=== PATIENT | female | born 1965 | race Caucasian/White ===

== ENCOUNTER 2019-05-23 11:00 | Inpatient (IN) | payer OTHER ==
[2019-05-13 17:23] VITALS: BMI 26.6
--- NOTE | 2019-05-22 09:11 | HP ---
Admitting History and Physical - Primary Care Physician PCP: Chan Linda - Admission Chief Complaint: Left breast cancer History of Present Illness: 53 year old perimenapausal female with strong family H/O cancer She underwent bilateral breast biopsises in the past and carries VUS BLM and TSC2 genes. mammogram and [facility] 11/2018 showed right retroareolar distortion and left upper quadrant calcifications which were compared and unchanged to prior films. She underwent breast MRI 03/25/2019 .there was unchanged density in right breast 12: 00 and area of suspicious enhancement left 3 and 5:00 regions. 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 The 3:00 density was felt to be benign. History Source: Patient Limitations to Obtaining History: No Limitations - Past Medical History ...LMP: 05/03/19 - Past Surgical History Past Surgical History: Yes: Appendectomy, (x2) - Smoking History Smoking history: Never smoked Have you smoked in the past 12 months: No - Alcohol/Substance Use Hx Alcohol Use: Yes (SOCIAL) Home Medications - Allergies Allergies/Adverse Reactions: Allergies Allergy/AdvReac Type Severity Reaction Status Date / Time Penicillins Allergy Verified 05/13/19 17:13 - Home Medications Home Medications: Ambulatory Orders Alprazolam [Xanax] 0.25 mg PO HS 05/13/19 Meloxicam 1 each PO PRN PRN 05/13/19 Family Disease History - Family Disease History Family Disease History: CA: Father (lung ca 64), Mother (breast and lung ca 63 ), Sister (breast ca 44 brca neg age 56//sister lung ca54//brother x2 lung ca 45) Physical Examination Constitutional: Yes: Well Nourished, No Distress Breast(s): Yes: Other (ptotic C cup breasts post bx fibroglandular changes left breast outer aspect no adenopathy bilateral right breast negative) Problem List - Problems (1) Breast cancer, left breast Code(s): C50.912 - MALIGNANT NEOPLASM OF UNSPECIFIED SITE OF LEFT FEMALE BREAST Qualifiers: Breast location: lower outer quadrant of breast Estrogen receptor status: positive Patient sex: female Qualified Code(s): C50.512 - Malignant neoplasm of lower-outer quadrant of left female breast; Z17.0 - Estrogen receptor positive status [ER+] Assessment/Plan Bilateral nipple sparing total mastectomies retroareolar biopsies reconstruction
[2019-05-23] MEDS ORDERED: GENTAMICIN SO4 80 MG/2 ML VIAL ONE (12:55)
[2019-05-23] MEDS ORDERED: ceFAZolin SODIUM 1 GM VIAL ONE (12:55)
[2019-05-23] MEDS ORDERED: ACETAMINOPHEN 325 MG TABLET (FP) PO PRN (12:57)
[2019-05-23] MEDS ORDERED: oxyCODONE HCL 5 MG TABLET PO PRN ×2 (12:57)
[2019-05-23] MEDS ORDERED: ONDANSETRON 4 MG/2 ML VIAL IVPUSH PRN ×2 (12:57→17:10)
[2019-05-23] MEDS ORDERED: ISOSULFAN BLUE 10 MG/ML VIAL SQ ONE (13:08)
[2019-05-23] MEDS ORDERED: BUPIVACAINE LIPOSOME/PF (EXPAREL) 266 MG/20 ML VIAL ONE (13:45)
[2019-05-23] MEDS ORDERED: fentaNYL CITRATE 250 MCG/5 ML VIAL ONE (13:46)
[2019-05-23] MEDS ORDERED: MIDAZOLAM HCL 2 MG/2 ML SINGLE DOSE VIAL ONE (13:46)
[2019-05-23] MEDS ORDERED: ROCURONIUM BROMIDE 50 MG/5 ML SYRINGE ONE (13:47)
[2019-05-23] MEDS ORDERED: PROPOFOL 20 ML ONE (13:47)
[2019-05-23] MEDS ORDERED: BUPIVACAINE HCL/PF 2.5 MG/ML - 30 ML VIAL IJ ONE (15:04)
[2019-05-23] MEDS ORDERED: SODIUM CHLORIDE 0.9% P/F 10 ML VIAL IJ ONE (15:04)
[2019-05-23] MEDS ORDERED: HYDROmorphone HCL/PF 1 MG/ML AMP ONE (15:43)
[2019-05-23] MEDS ORDERED: GLYCOPYRROLATE 0.2 MG/1 ML VIAL ONE ×3 (16:42→16:43)
[2019-05-23] MEDS ORDERED: BUPIVACAINE HCL/PF 0.25% (2.5MG/ML) 10 ML VIAL IJ ONE (16:45)
[2019-05-23] MEDS ORDERED: BUPIVACAINE LIPOSOME/PF (EXPAREL) 266 MG/20 ML VIAL NR ONE (16:45)
[2019-05-23] MEDS ORDERED: PROMETHAZINE HCL 25 MG/1 ML VIAL IVPUSH PRN (17:10)
[2019-05-23] MEDS ORDERED: HYDROmorphone HCL CARPU-JECT 1 MG/1 ML DISP.SYRIN IVPUSH PRN (17:10)
--- NOTE | 2019-05-23 17:39 | OP ---
Operative Note - Note: Operative Date: 05/23/19 Pre-Operative Diagnosis: left breast cancer Operation: bilateral nipple sparing mastectomy with left sentinel lymph node biopsy. bilateral breast reconstruction with alloderm and implants. Surgeon: Nader Lyon Conveyor Loader: Justina Rubio Anesthesiologist/GEAR LAPPER: Mk Thornton Anesthesia: General Estimated Blood Loss (mls): 30 Fluid Volume Replaced (mls): 1,700 Operative Report Dictated: Yes
--- NOTE | 2019-05-23 18:33 | OP ---
DATE OF OPERATION: 05/23/2019 PREOPERATIVE DIAGNOSIS: Left breast cancer, lower outer quadrant. POSTOPERATIVE DIAGNOSIS: Left breast cancer, lower outer quadrant. PROCEDURE: Bilateral total nipple-sparing mastectomy through an inframammary approach with left axillary sentinel lymph node biopsy and bilateral direct implant reconstruction with AlloDerm. PRIMARY SURGEON: Heriberto Linda MD DECATOR OPERATOR: RAYMOND Quintana PRIMARY SURGEON FOR BILATERAL DIRECT IMPLANT RECONSTRUCTION: Heriberto Lyon MD COMPLICATIONS: None. INDICATIONS: Briefly, the patient is a 53-year-old perimenopausal white female with a strong family history with her sister who had breast cancer at age 44 and mother who had breast cancer at age 61. Her maternal aunt had breast cancer at age 60. The patient herself has been getting close followup and has had multiple benign biopsies in the past. She had an increased Bre risk and has been getting routine MRI as well. She was found to have some recent enhancement to the left breast 5 o'clock region on recent MRI and underwent an MRI-guided core biopsy in the 5 o'clock region showing a moderately differentiated invasive duct cancer, which was ER/MA-positive, HER2/peg-negative with a low Ki-67. Cancer seemed to be localized on MRI and the patient was given the option of a partial mastectomy, but decided to go forward with bilateral mastectomies given her strong family history. She was given the option of a nipple-sparing procedure given the localized small nature of this cancer. She was seen by plastic surgery preoperatively and chose the bilateral implant reconstruction. She was brought in on May 23, 2019 for the procedure. DESCRIPTION OF PROCEDURE: She first underwent a lymphoscintigraphy with the periareolar injection of technetium 99, performed at [facility] and then was transported to the [facility] area. In the holding area, site verification was made and informed consent was obtained. She was marked preoperatively by the plastic surgeon. She was brought into the operating room and placed on the OR table in the supine position. Venodynes were placed on the lower extremities prior to induction. She received 600 mg of clindamycin prior to incision. She underwent general endotracheal anesthesia and both breasts were sterilely prepped and draped in the usual fashion with the left arm prepped in the field. No blue dye was injected since we were doing a nipple-sparing technique. Timeout was performed. At this point, the left axially sentinel lymph node biopsy was first performed and an incision was made just below the hair-bearing area of the left axilla. Dissection was undertaken and a hot node was easily found in the level 1 region of the left axilla with a 10-second gamma count of 2647. No other blue nodes were found and background count after removal of this node was 37. Hemostasis was achieved. The axial wound was closed using interrupted 3-0 deep dermal Vicryl suture and a running 4-0 subcuticular Biosyn suture. At this point, the left mastectomy was performed through a 9-cm inframammary incision, marked out in the inframammary fold of the left breast. The skin edges were everted and the breast tissue was retracted inferiorly using Koffi clamps. The breast was taken down off of the skin flap using the PEEK radiofrequency device superiorly to the level of the clavicle, medially to the level of the sternum, laterally to the level of the latissimus, and inferiorly to the level of the inframammary fold. The breast was taken off of the temporalis major muscle using electrocautery from [id number], completely removed intact. It was oriented with a long lateral and short superior suture and specimen radiograph of the breast showed removal of the clip in question. A separate small subcutaneous nodule was noted just on the lateral aspect of the left skin flap and this was removed and sent as a separate left lateral breast mass. A separate left lower outer quadrant anterior margin was also taken and this was marked with a suture marking the biopsy cavity side and sent to Pathology in formalin. At this point, hemostasis was achieved and the wound was copiously irrigated with warm sterile saline. The skin flaps were trimmed for good cosmetic result. The retroareolar biopsy was taken underneath the left nipple areolar complex and sent for frozen section. It came back negative, so the left nipple was spared. Gloves were changed as well as instruments and the right breast was approached. Again, a 10-cm incision was made in the inframammary fold of the right breast, symmetrical to the left incision. The skin edges were everted and the breast tissue was retracted inferiorly using [employer] [place] clamps. The skin flap was raised using the PEEK radiofrequency device superiorly to the level of the clavicle, medially to the level of the sternum, laterally to the level of the latissimus, and inferiorly below the level of the inframammary fold. The breast was taken off of the pectoralis major muscle from [id number], completely removed intact. It was oriented with a long lateral, short superior suture and weighed to allow for appropriate cosmetic result. It was then sent down in formalin to Pathology. The skin flaps were trimmed to a good cosmetic result. A retroareolar biopsy was taken underneath the right nipple areolar complex and sent for frozen section, which came back negative. The right nipple was spared. Again, the skin flaps were trimmed for good cosmetic result and hemostasis was achieved. At this Dr. Lyon became the primary surgeon to perform bilateral subpectoral direct implant reconstruction with AlloDerm. He will sew AlloDerm into the inferolateral aspect of both pectoralis major muscles to allow for direct reconstruction. Two Russel drains will be placed around each implant and brought out through separate incisions in the lateral skin flap and secured in place using nylon suture. All wounds will be closed separately by Plastic Surgery. All sponge and needle counts are correct at this point in the case. Estimated blood loss is about 125 mL at this point in the case. We did use the Spy skin perfusion device after the mastectomy and after the implant reconstructions, which showed excellent blood flow through the skin flaps and nipple areolar complexes. After the reconstruction, the patient will be extubated and recovered in the postanesthesia care unit and then she will be admitted postoperatively for pain and wound management. HERIBERTO LINDA M.D. [id number]
[2019-05-23] MEDS: diazePAM 5 MG TABLET PO PRN (21:35)
[2019-05-24] MEDS: oxyCODONE HCL 5 MG TABLET PO PRN ×6 (00:26→21:10)
[2019-05-24] MEDS: CLINDAMYCIN 300 MG PREMIX IVPB 300 MG/50 ML BAG IVPB SCH ×4 (02:00→17:14)
[2019-05-24] MEDS: HEPARIN NA (PORCINE) 5,000 UNITS/ML 1ML VIAL SQ SCH ×2 (07:20→20:55)
--- NOTE | 2019-05-24 07:44 | SURG ---
Surgery Water Softener Servicer And Installer Note Water Softener Servicer And Installer: Justina Rubio PA-C (Suzy) Date of Service: 05/23/19 Diagnosis: Left breast cancer Procedure: Bilateral breast reconstruction with alloderm and implants I was present for the entirety of the operative procedure. For further detail, please refer to operative report. Visit type - Case Type Case Type: Scheduled - Emergency Emergency Visit: No - New patient This patient is new to me today: Yes Date on this admission: 05/24/19 - Critical Care Critical Care patient: No
--- NOTE | 2019-05-24 07:46 | SPA.POSTOP ---
- POST-OP NOTE POD #1 s/p bilateral mastectomy and breast reconstruction No acute events since surgical procedure per RN notes. Patient resting comfortably. Pain management via prn meds. Denies n/v/f/c, CP or SOB. Last Vital Signs Temp Pulse Resp BP Pulse Ox 98.4 F 72 19 133/66 95 05/24/19 06:00 05/24/19 06:00 05/24/19 06:00 05/24/19 06:00 05/24/19 07:15 Physical Exam General: No acute distress. Chest: incisions clean with no erythema or discharge, skin and nipple are pink and warm, drains in place with serosanguinous drainage. Cor: Regular rhythm LE: Soft, non-tender bilat. SCD's bilat. Problem List - Problems (1) Breast cancer, left breast Assessment/Plan: Plan -pt appears to be doing well -OOB/ambulate -pain control -DVT ppx -monitor drain output. Code(s): C50.912 - MALIGNANT NEOPLASM OF UNSPECIFIED SITE OF LEFT FEMALE BREAST Qualifiers: Breast location: lower outer quadrant of breast Estrogen receptor status: positive Patient sex: female Qualified Code(s): C50.512 - Malignant neoplasm of lower-outer quadrant of left female breast; Z17.0 - Estrogen receptor positive status [ER+]
[2019-05-24 07:57] LABS: HEMOGLOBIN 11.3 GM/dl (10.7-15.3); MCH 31.2 pg (25.7-33.7); MCHC 34.2 g/dl (32.0-36.0); MEAN CELL VOLUME 91.2 fl (80-96); MEAN PLT VOLUME 8.3 fl (7.5-11.1); PLATELET COUNT 247 K/MM3 (134-434); RBC 3.63 M/mm3 (3.60-5.2); RDW 12.1 % (11.6-15.6); WHITE BLOOD COUNT 14.2 K/mm3 (4.0-10.8)
--- NOTE | 2019-05-24 09:05 | PN ---
Progress Note, Physician Chief Complaint: Left breast cancer S/P bilateral nipple sparing mastectomies left sentenel node biopsy and alloderm and implant reconstruction POD#1 History of Present Illness: Patient is eating OOB walking in hallway, pain controlled with current medication - Current Medication List Current Medications: Active Medications Acetaminophen (Tylenol -) 650 mg PO Q4H PRN PRN Reason: FEVER Diazepam (Valium -) 5 mg PO Q8H PRN PRN Reason: MUSCLE SPASMS Last Admin: 05/23/19 21:35 Dose: 5 mg Fentanyl (Sublimaze Injection -) 50 mcg IVPUSH [id number] PRN PRN Reason: PAIN-PACU ORDER X 4 DOSES ONLY Heparin Sodium (Porcine) (Heparin -) 5,000 unit SQ BID@0800,2000 [facility] Last Admin: 05/24/19 07:20 Dose: 5,000 unit Hydromorphone HCl (Dilaudid Injection -) 0.5 mg IVPUSH [id number] PRN PRN Reason: PAIN-PACU ORDER X 4 DOSES ONLY Dextrose/Sodium Chloride (D5-1/2ns -) 1,000 mls @ 100 mls/hr IV ASDIR [facility] Clindamycin Phosphate (Cleocin 300 Mg Premix Ivpb) 300 mg in 50 mls @ 100 mls/ hr IVPB Q8H-IV [facility]; Protocol Last Admin: 05/24/19 02:00 Dose: 100 mls/hr Ondansetron HCl (Zofran Injection) 4 mg IVPUSH Q6H PRN PRN Reason: NAUSEA AND/OR VOMITING Last Admin: 05/24/19 00:39 Dose: 4 mg Oxycodone HCl (Roxicodone -) 5 mg PO Q4H PRN PRN Reason: PAIN LEVEL 1-5 Last Admin: 05/24/19 07:20 Dose: 5 mg Oxycodone HCl (Roxicodone -) 10 mg PO Q4H PRN PRN Reason: PAIN LEVEL 6-10 Promethazine HCl (Phenergan Injection -) 12.5 mg IVPUSH Q6H PRN PRN Reason: NAUSEA-FOR RESCUE AFTER 15 MIN - Objective Vital Signs: Vital Signs Temperature 98.4 F 05/24/19 06:00 Pulse Rate 72 05/24/19 06:00 Respiratory Rate 19 05/24/19 06:00 Blood Pressure 133/66 08/16/19 06:00 O2 Sat by Pulse Oximetry (%) 95 05/24/19 07:15 Constitutional: Yes: No Distress Breast(s): Yes: Other (Bilateral flaps viable incision intact with steristrips , left moderate echymosis, no infection or expanding hematoma , JAVED drains functionng well) Labs: CBC, BMP 05/24/19 07:00 Problem List - Problems (1) Breast cancer, left breast Code(s): C50.912 - MALIGNANT NEOPLASM OF UNSPECIFIED SITE OF LEFT FEMALE BREAST Qualifiers: Breast location: lower outer quadrant of breast Estrogen receptor status: positive Patient sex: female Qualified Code(s): C50.512 - Malignant neoplasm of lower-outer quadrant of left female breast; Z17.0 - Estrogen receptor positive status [ER+] Assessment/Plan IV antibiotics oxycodone /valium prn spirometry scd while in bed SQ heparin plan for discharge tomorrow
[2019-05-24] MEDS: diazePAM 5 MG TABLET PO PRN (09:25)
[2019-05-24] MEDS: DEXTROSE 5%-0.45% SALINE 1,000 ML IV SCH ×2 (10:15→13:40)
--- NOTE | 2019-05-24 12:09 | PN ---
Progress Note (short form) - Note Progress Note: ANESTHESIA POSTOP 53 YO FEMALE POD #1 S/P BL MASTECTOMY, RECONSTRUCTION, GETA Patient resting in bed. Tolerating PO. Pain adequately controlled. No n/v. VSS, Afebrile Continue current care. Encouraged IS and ambulation. No anesthetic complications
[2019-05-25] MEDS: oxyCODONE HCL 5 MG TABLET PO PRN ×3 (01:48→10:10)
[2019-05-25] MEDS: CLINDAMYCIN 300 MG PREMIX IVPB 300 MG/50 ML BAG IVPB SCH ×2 (01:48→10:10)
[2019-05-25 07:55] VITALS: TEMP 98.8
[2019-05-25] MEDS: HEPARIN NA (PORCINE) 5,000 UNITS/ML 1ML VIAL SQ SCH (08:33)
[2019-05-25 10:09] VITALS: BP 113/65; PULSE 84
--- NOTE | 2019-05-25 10:43 | PN ---
Progress Note, Physician Chief Complaint: left breast cancer lower outer quadrant with strong family history of breast cancer History of Present Illness: The patient was being followed closely due to her strong family history and was recently diagnosed with a left breast cancer in the lower outer quadrant. The cancer was ER+/AR+ HER2-. Genetic testing was negative but the patient decided on bilateral mastectomies with a left axillary sentinel lymph node biopsy and prophylactic right mastectomy. The surgery was performed on May 23, 2019 with a bilateral nipple sparing technique and bilateral direct to implant reconstructions with alloderm. She was admitted postoperatively for postop wound care and pain management. - Current Medication List Current Medications: Active Medications Acetaminophen (Tylenol -) 650 mg PO Q4H PRN PRN Reason: FEVER Diazepam (Valium -) 5 mg PO Q8H PRN PRN Reason: MUSCLE SPASMS Last Admin: 05/24/19 09:25 Dose: 5 mg Fentanyl (Sublimaze Injection -) 50 mcg IVPUSH [id number] PRN PRN Reason: PAIN-PACU ORDER X 4 DOSES ONLY Heparin Sodium (Porcine) (Heparin -) 5,000 unit SQ BID@0800,2000 [facility] Last Admin: 05/25/19 08:33 Dose: 5,000 unit Dextrose/Sodium Chloride (D5-1/2ns -) 1,000 mls @ 100 mls/hr IV ASDIR [facility] Last Admin: 05/24/19 13:40 Dose: Not Given Clindamycin Phosphate (Cleocin 300 Mg Premix Ivpb) 300 mg in 50 mls @ 100 mls/ hr IVPB Q8H-IV [facility]; Protocol Last Admin: 05/25/19 10:10 Dose: 100 mls/hr Ondansetron HCl (Zofran Injection) 4 mg IVPUSH Q6H PRN PRN Reason: NAUSEA AND/OR VOMITING Last Admin: 05/24/19 00:39 Dose: 4 mg Oxycodone HCl (Roxicodone -) 5 mg PO Q4H PRN PRN Reason: PAIN LEVEL 1-5 Last Admin: 05/24/19 11:33 Dose: 5 mg Oxycodone HCl (Roxicodone -) 10 mg PO Q4H PRN PRN Reason: PAIN LEVEL 6-10 Last Admin: 05/25/19 10:10 Dose: 10 mg Promethazine HCl (Phenergan Injection -) 12.5 mg IVPUSH Q6H PRN PRN Reason: NAUSEA-FOR RESCUE AFTER 15 MIN - Objective Vital Signs: Vital Signs Temperature 98.8 F 05/25/19 10:08 Pulse Rate 84 05/25/19 10:08 Respiratory Rate 18 05/25/19 10:08 Blood Pressure 113/65 05/25/19 10:08 O2 Sat by Pulse Oximetry (%) 93 L 05/25/19 07:53 Constitutional: Yes: Well Nourished, No Distress, Calm Eyes: Yes: WNL HENT: Yes: Atraumatic, Normocephalic Neck: Yes: WNL Cardiovascular: Yes: Regular Rate and Rhythm Respiratory: Yes: Regular, CTA Bilaterally Gastrointestinal: Yes: Normal Bowel Sounds, Soft ...Rectal Exam: Yes: Deferred Genitourinary: Yes: WNL Breast(s): Yes: Other (Bilateral mastectomy wounds clean, dry, and intact. Drains functioning well. Skin flaps warm and viable.) Musculoskeletal: Yes: WNL Extremities: Yes: WNL Integumentary: Yes: WNL Wound/Incision: Yes: Clean/Dry, Well Approximated Neurological: Yes: Alert, Oriented ...Motor Strength: WNL Psychiatric: Yes: WNL Labs: CBC, BMP 05/24/19 07:00 Problem List - Problems (1) Breast cancer, left breast Assessment/Plan: The patient is doing well POD#2 s/p bilateral nipple sparing mastectomies with a left axillary sentinel lymph node biopsy and direct to implant reconstruction with alloderm. Her wounds are clean, dry, and intact with stable viable skin flaps. Drains functioning well. She has good pain control and is stable for discharge today. Follow up with Drs. Lyon and Maddi in 1 week. No heavy lifting or exercise. No bath shower until drains removed. Keep compressive bra on night/day. Record drain outputs daily. Code(s): C50.912 - MALIGNANT NEOPLASM OF UNSPECIFIED SITE OF LEFT FEMALE BREAST Qualifiers: Breast location: lower outer quadrant of breast Estrogen receptor status: positive Patient sex: female Qualified Code(s): C50.512 - Malignant neoplasm of lower-outer quadrant of left female breast; Z17.0 - Estrogen receptor positive status [ER+]
--- NOTE | 2019-05-25 10:53 | DS ---
Physical Examination Vital Signs: Vital Signs Temperature 98.8 F 05/25/19 10:08 Pulse Rate 84 05/25/19 10:08 Respiratory Rate 18 05/25/19 10:08 Blood Pressure 113/65 05/25/19 10:08 O2 Sat by Pulse Oximetry (%) 93 L 05/25/19 07:53 Constitutional: Yes: Well Nourished, No Distress, Calm Eyes: Yes: WNL HENT: Yes: WNL Neck: Yes: WNL Cardiovascular: Yes: Regular Rate and Rhythm Respiratory: Yes: Regular, CTA Bilaterally Gastrointestinal: Yes: Normal Bowel Sounds, Soft ...Rectal Exam: Yes: Deferred Renal/: Yes: WNL Breast(s): Yes: Other (Mastectomy wounds clean, dry, and intact. Drains fuctioning well. Skin flaps warm and viable.) Musculoskeletal: Yes: WNL Extremities: Yes: WNL Integumentary: Yes: WNL Wound/Incision: Yes: Clean/Dry, Well Approximated Neurological: Yes: Alert, Oriented ...Motor Strength: WNL Psychiatric: Yes: WNL Labs: CBC, BMP 05/24/19 07:00 Discharge Summary Reason For Visit: BILATERAL NIPPLE SPARING MASTECTOMY MAJOR BILATERA Left breast cancer lower outer quadrant with strong family history of breast cancer Procedures: Principal: Bilateral nipple sparing mastectomies with left axillary sentinel lymph node biopsy and bilateral direct to implant reconstrcution with alloderm Hospital Course: The patient was admitted postoperatively for wound care and pain management. She had good pain control with stable wounds with viable skin flaps by POD#2. Drains were functioning well and they were taught drain management. She was stable for discharge by POD#2. She is to follow up with Drs. Lyon and Maddi in 1 week. Record drain outputs daily and keep compressive bra on day/ night. No heavy lifting or exercise and no bath/shower until drains removed. Percocet for pain and cipro antibiotics prescriptions sent to pharmacy. Condition: Good - Instructions Diet, Activity, Other Instructions: Post Operative Instructions - [facility] We hope your recovery will be uneventful. For those of you who have been given general anesthesia, there is a possibility you might have some lightheadedness and possibly nausea. It is important that each patient, especially those who have had general anesthesia, follow these instructions, please: 1. Do NOT operate a motor vehicle for 24 hours. 2. Do NOT drink any alcoholic beverages for 24 hours. 3. Do NOT take any sedatives, narcotics, or tranquilizers for 24 hours unless specifically ordered by your surgeon. 4. Do NOT undertake any strenuous exercise or outside activity for 24 hours unless specifically permitted by your surgeon. 5. Eat light foods that are easy to digest. If you have any problems with nausea and vomiting, lie down and rest. If it continues, call your surgeon. 6. Call your surgeon AT ONCE if you have problems with: a. Bleeding b. Urinating c. Excessive pain or drainage d. Numbness If any problems occur, call your physician first. If you cannot reach him/her, call the Ambulatory Surgery Unit at [phone], or the Emergency Room at [phone]. Follow up with Drs. Linda / Oliver in 7 days. Medication: Vicodin E-S OR Percocet 1-2 tablets every 4-6 hrs as needed for 5-7 days. Wound Care: Keep wound dry and clean for 48 hours. You may remove the dressing after 48 hours and may shower. Keep steri-strips in place until follow-up appointment No heavy lifting or strenuous activities. BREAST SURGERY INSTRUCTIONS Adeel Linda M.D., FACS Chan Linda M.D., FACS Marco Antonio Boyd M.D., FACS 1. Please call the office at to make a follow up appointment with your surgeon. This number can be also used for any urgent issues you may have. 2. Call us immediately if any of the following occur: *Bleeding from the incision or drain site (a small amount is normal) *Fever or chills *Redness and worsening tenderness around the surgical site *Drainage of pus or fluid from the incision or drain site 3. You may change the surgical dressing two (2) days after your surgery, and may shower then. If you have drains, you may shower after they have been removed, until then take a sponge bath. 4. It is normal for there to be some bruising and tenderness around the surgical site, and the breast may also be firm in this area. 5. Your surgeon used 3M DuraPrep Surgical Solution, a bacteria-killing skin preparation. It is recommended that this film remain on the skin after the procedure. The film will gradually wear away. If, however, early removal is desired: 1. Apply 8610 or 8611 3M Remover solution to the prepped area, keeping away from the wound edge or puncture site. Wipe off with a disposable towel. OR 2. Soak gauze with 70% Isopropyl alcohol and place on the prepped area for at least 40 seconds. Lightly scrub to remove the solution. 6. Please wear a comfortable bra (sports or surgical bra) all day and all night until your first follow-up visit with your surgeon. 7. The pain medicine you have been prescribed may make you constipated; make sure you drink plenty of water. You may use an over the counter laxative if needed. 8. You may resume your normal diet after surgery, although you may want to avoid rich foods for the first twenty-four (24) hours after surgery. Alcoholic drinks should be avoided while taking the prescribed pain medicine. 9. You may resume normal activities as long as there is no discomfort, but do not do upper body exercises until after your follow-up appointment. Do not lift anything heavier than a large phone book. You may resume driving once you have stopped taking the prescribed pain medicine and feel comfortable doing arm movements. WEAR BRA, NO SHOWER, empty and record JAVED output twice daily Referrals: Chan Linda MD [Staff Physician] - Nader Lyon MD [Staff Physician] - Disposition: HOME - Home Medications Comprehensive Discharge Medication List: Ambulatory Orders Ciprofloxacin HCl [Cipro] 500 mg PO BID 10 Days #20 tablet 05/24/19 Diazepam [Valium] 5 mg PO Q8H PRN 7 Days #10 tablet MDD 2 05/24/19 Oxycodone HCl/Acetaminophen [Percocet 5-325 mg Tablet] 1 - 2 tab PO Q6H PRN #30 tab MDD 6 05/24/19
[2019-05-25] MEDS: DEXTROSE 5%-0.45% SALINE 1,000 ML IV SCH (13:11)
--- NOTE | 2019-05-28 09:29 | OP ---
DATE OF OPERATION: 05/23/2019 PREOPERATIVE DIAGNOSES: 1. Bilateral acquired chest wall deformity status post bilateral mastectomy (611.89). 2. Personal history of genetic carcinoma. POSTOPERATIVE DIAGNOSES: 1. Bilateral acquired chest wall deformity status post bilateral mastectomy (611.89). 2. Personal history of genetic carcinoma. PROCEDURE: 1. Right immediate breast reconstruction utilizing immediate insertion of silicone breast implant and AlloDerm SELECT tissue matrix contour large perforated sheets reconstruction. 2. Left immediate breast reconstruction utilizing immediate insertion of silicone breast implant and AlloDerm SELECT tissue matrix contour large perforated sheets reconstruction. 3. Intravenous injection of indocyanine green dye and intraoperative diagnostic evaluation of non-coronary intraoperative fluorescein vascular angiography x 2. SURGEON: Dr. Sarah Lyon SEWING MACHINE OPERATOR PAPER BAGS: Heriberto Linda MD ANESTHESIA: GENERAL OPERATIVE PROCEDURE IN DETAIL: The patient was taken to the operating room. After induction of general anesthesia in the supine position, both arms were extended and padded. Venodyne boots were placed. The entire chest wall was painted with ChloraPrep solution over its entire extent, and sterile drapes were placed in the usual fashion. The markings, which had been made in the standing position preoperatively, were reoutlined with the patient's knowledge. Time-out procedure was performed. Attention was turned by Dr. Linda to the mastectomies. Bilateral inframammary incisions were made and Dr. Linda performed mastectomies. This will be dictated under separate cover. Upon completion of the mastectomies, the wounds were copiously irrigated and attention was turned to the right breast. A subpectoral dissection was begun on the right breast, superiorly from the second rib, medially to the sternal fibers, and down to the inframammary fold, elevating the pectoralis major muscle from its insertion. At this point, an 8.0 x 16.0 sheet of AlloDerm was brought into the field and sutured superiorly along the pectoralis major muscle after rehydration. This was carried along the lateral mammary fold and down the side of the breast reconstruction. At this point, a Sientra smooth, round, high-profile, style 107, 565 mL implant was chosen. The left breast tissue removed was 444 gm, and the right breast approximately 461 gm. This implant was placed and then sutured with 3-0 Vicryl suture continued along the inframammary fold, completely covering the implant itself. The exact same procedure was carried out symmetrically on the opposite breast, also placing a Sientra smooth, round, high-profile, style 107, 565 mL implant in the same subpectoral pocket. Good symmetry was seen in the sitting position. After the implants were in place, the patient was injected with 10 mL of indocyanine green dye and the Spy imaging system was brought into the field. The skin flowed to the right and left breasts and the nipple areolar complex, and the entire skin flaps were evaluated and seen to be viable with good blood flow. Two Russel drains were brought out through separate stab wounds laterally. The Smart Infuser pump catheter was inserted medially and into the subpectoral position. Both wounds were closed symmetrically using 3-0 PDS suture on the deep tissue, 3-0 in a deep dermal fashion, and 4-0 in a subcuticular fashion. Both wounds were dressed sterilely with Mastisol and Steri-Strips with a surgical bra and a compression strap. The patient tolerated the procedure well. She was awakened, extubated and transferred to the recovery room in satisfactory condition. The dental assistant instructor was present during the entire portion of the operation and closure. HERIBERTO LYON M.D. [id number]
--- NOTE | 2019-05-28 15:07 | PATH ---
Surgical Pathology Report Patient Name: LEO THOMAS [facility]. Rec. #: [id number] /Age/Gender: 1965 (Age: 53) / F Account: [id number] Location: [facility] Taken: 05/23/2019 Received: 05/23/2019 Reported: 05/28/2019 Physicians: Chan Linda M.D. Specimen(s) Received A: LEFT AXILLARY SENTINEL LYMPH NODE # 1 (FS) B: RIGHT BREAST RETROAREOLAR BIOPSY (FS) C: LEFT BREAST RETROAREOLLAR BIOPSY (FS) D: RIGHT BREAST MASTECTOMY E: LEFT BREAST MASTECTOMY F: LEFT LATERAL BREAST MASS G: LEFT BREAST ANTERIOR MARGIN Clinical History Left 4:00 cancer Intraoperative Consult Diagnosis A. Left axillary sentinel lymph node #1, frozen section: One lymph node, negative for carcinoma (0/1). B. Right breast retroareolar biopsy, frozen section: Benign breast parenchyma. C. Left breast retroareolar biopsy, frozen section: Focal atypical ductal hyperplasia with calcifications. Demetria Thayer M.D., 05/23/2019 Final Diagnosis A. lymph node, left axillary sentinel #1, excision (FS): One lymph node, negative for metastatic carcinoma (0/1). B. retroareola, right breast, biopsy (FS): Benign breast tissue; negative for malignancy. C. retroareola, left breast, biopsy (FS): Benign breast tissue; negative for malignancy. . D. Breast, right, nipple-sparing mastectomy: Lobular carcinoma in situ (LCIS, classical type), atypical ductal hyperplasia (ADH), usual ductal hyperplasia (UDH), columnar cell change, cystic apocrine metaplasia and associated calcifications. E. breast, left, nipple-sparing mastectomy: Invasive ductal carcinoma, moderately differentiated (tubule score: 3/3, nuclear grade: 2/3, mitotic score: 1/3, total score: 6/9; Evy, grade 2). Invasive carcinoma measures 5 mm in greatest dimension, microscopically. Extensive ductal carcinoma in situ (DCIS), Solid and cribriform type, intermediate to high nuclear grade with moderate necrosis and associated calcifications, present admixed with invasive carcinoma and away from it (extensive Intraductal component/ eic). Surgical margins are uninvolved by carcinoma; invasive carcinoma is at 5 mm from the closest (anterior) margin and DCIS is at 2 mm from the closest (anterior) margin. see specimen G for final anterior margin. No lymphovascular invasion is identified. Prior biopsy site changes are present. Remaining breast tissue shows atypical lobular hyperplasia (ALH), columnar cell change, cystic apocrine metaplasia, small fibroadenoma AND ASSOCIATED CALCIFICATIONS. Pathologic stage (pTNM): pT1a pN0. see also invasive carcinoma Case summary below. F. breast, left lateral mass, excision: Benign breast tissue showing fibrocystic changes including stromal fibrosis and cystic apocrine metaplasia. G. breast, left, anterior margin, excision: Benign breast tissue. Comments Breast Invasive Carcinoma: Surgical Pathology Case Summary (Based on AJCC TNM 8 th edition) Procedure _X_ Total mastectomy (including nipple-sparing and skin-sparing mastectomy) Specimen Laterality _X_ Left Tumor Size _X_ Greatest dimension of largest invasive focus >1 mm (millimeters): 5 mm Histologic Type _X_ Invasive carcinoma of no special type (ductal, not otherwise specified) Histologic Grade (Hastings Histologic Score) Glandular (Acinar)/Tubular Differentiation _X_ Score 3 (<10% of tumor area forming glandular/tubular structures) Nuclear Pleomorphism _X_ Score 2 Mitotic Rate _X_ Score 1 Overall Grade _X_ Grade 2 (scores of 6 or 7) Tumor Focality _X_ Single focus of invasive carcinoma Ductal Carcinoma In Situ (DCIS) _X_ DCIS is present in specimen _X_ Positive for extensive intraductal component ( EIC) Margins Invasive Carcinoma Margins _X_ Uninvolved by invasive carcinoma Distance from closest margin (millimeters): 5 mm Closest margin: anterior (final anterior margin (G) is negative for carcinoma). DCIS Margins _X_ Uninvolved by DCIS Distance from closest margin (millimeters): 2 mm Closest margin: anterior (final anterior margin (G) is negative for DCIS). Regional Lymph Nodes _X_ Uninvolved by tumor cells Number of Lymph Nodes Examined: 1 Number of Magazine Nodes Examined: 1 Treatment Effect _X_ No known presurgical therapy Lymphovascular Invasion _X_ Not identified Pathologic Stage Classification (pTNM, AJCC 8th Edition) Primary Tumor (Invasive Carcinoma) (pT) _X_ pT1a: Tumor >1 mm but =5 mm in greatest dimension (round any measurement >1.0-1.9mm to 2 mm) Category (pN) _X_ pN0: No regional lymph node metastasis identified or ITCs only Biomarker Studies Results of ER, MT, Her2 and Ki67 studies will be reported separately in an addendum. Electronically Signed Sarah Rueda M.D. Addendum Reported: 05/30/2019 Addendum Diagnosis Results of ER, MT, Her2 (IHC) & Ki-67 studies performed on block E3 at [place], [place] ([id number]) are as follows: ER (clone [id number] mouse monoclonal antibody by [employer]) : >95 % nuclear staining with strong intensity (positive). MT (clone16 mouse monoclonal antibody by [employer]) :>95 % nuclear staining with strong intensity (positive). Her2 IHC (EP3 from [employer], formerly known as [id number], using Louis Polymer Refine detection kit): 0 (negative). Ki-67: ~15% (low proliferative index). Positive and negative controls (internal if applicable) show appropriate results. Formalin fixation and cold ischemic times are within current ASCO/CAP recommendations for ER, MT and Her2 testing. Sarah Rueda M.D. Gross Description A. Received fresh labeled "left axillary sentinel lymph node #1," is a 2.0 x 1.5 x 0.5 cm lymph node. The lymph node is bisected and frozen section is performed on the lymph node. The frozen section residue is entirely submitted in one cassette. B. Received fresh labeled "right breast retroareolar biopsy," is a 3.5 x 2.0 x 0.7 cm portion of fibroadipose tissue. Frozen section is performed on the tissue. The frozen section residue is entirely submitted in one cassette. C. Received fresh labeled "left breast retroareolar biopsy," is a 2.5 x 2.5 x 1.0 cm portion of fibroadipose tissue. Frozen section is performed on the tissue. The frozen section residue is entirely submitted in one cassette. D. Received in formalin, labeled "right breast mastectomy," is a 468 gram, 20.5 x 14.5 x 4.0 cm. right mastectomy specimen with a short suture marking the superior aspect and a long suture marking the lateral aspect of the specimen, per the surgeon. There is no skin or nipple present. The deep margin is inked black and the anterior soft tissue margin is inked blue. The specimen is serially sectioned from lateral to medial. Sectioning reveals abundant dense, white, focally firm fibrous tissue. No mass is identified. Post Doctoral Fellow sections are submitted in 15 cassettes as follows: 1-3-upper outer quadrant; 4-6-lower outer quadrant; 7-10-upper inner quadrant; 11-13-lower inner quadrant 14-anterior soft tissue margin; 15-deep margin. E. Received in formalin, labeled "left breast mastectomy," is a 454 gram, 15.5 x 15.0 x 3.8 cm. left mastectomy specimen with a short suture marking the superior aspect and a long suture marking the lateral aspect of the specimen, per the surgeon. There is no skin or nipple present. The deep margin is inked black and the anterior soft tissue margin is inked blue. The specimen is serially sectioned from medial to lateral. Sectioning reveals a 1.0 x 0.8 x 0.8 cm ill-defined, indurated mass associated with the biopsy site in the lower outer quadrant (LOQ). The mass is 0.4 cm from the anterior soft tissue margin. The remaining breast parenchyma displays abundant dense, white, firm fibrocystic tissue. Post Doctoral Fellow sections are submitted in 13 cassettes as follows: 1-full-face LOQ mass with anterior soft tissue margin; 9-9-dagrwfheug sections of LOQ mass, each with anterior soft tissue margin; 4-uninvolved LOQ tissue; 5-6-upper outer quadrant; 7-9-upper inner quadrant; 10-12-lower inner quadrant; 13-deep margin (from area of mass). Time to formalin fixation: 40 minutes Total formalin fixation time: Approximately 25 hours. F. Received in formalin labeled "left lateral breast mass," is a 3.8 x 2.5 x 0.8 cm unoriented portion of fibroadipose tissue. The specimen is inked blue and serially sectioned. Sectioning reveals focally firm fibrous tissue. No definitive mass is identified. The specimen is entirely and sequentially submitted in 6 cassettes (firm fibrous tissue in cassettes 2-3). G. Received in formalin labeled "left breast anterior margin," is a 4.8 x 3.4 x 1.9 cm portion of fibroadipose tissue with a suture marking the biopsy cavity side, per the surgeon. The new margin is inked blue and the specimen is serially sectioned. The specimen is entirely and sequentially submitted in 8 cassettes. 05/24/2019/2019
== END 2019-05-25 12:50 | disposition home or self-care (01) | DRG 362 ==
LOC: FM/S 11:31
PROVIDERS: ADMIT Surgery Surgical Oncology; ATTEND Surgery Surgical Oncology
PROC: 4A1GXSH Monitoring of Skin and Breast Vascular Perfusion using Indocyanine Green Dye, External Approach (ICD-10-PCS; 2019-05-23)
PROC: 0HTV0ZZ Resection of Bilateral Breast, Open Approach (ICD-10-PCS; principal; 2019-05-23 14:27)
PROC: 07B60ZX Excision of Left Axillary Lymphatic, Open Approach, Diagnostic (ICD-10-PCS; 2019-05-23 14:27)
PROC: 0HRV0JZ Replacement of Bilateral Breast with Synthetic Substitute, Open Approach (ICD-10-PCS; 2019-05-23 14:27)
DX: C50.512 Malignant neoplasm of lower-outer quadrant of left female breast (principal); Z40.01 Encounter for prophylactic removal of breast; M95.4 Acquired deformity of chest and rib; Z15.01 Genetic susceptibility to malignant neoplasm of breast; Z17.0 Estrogen receptor positive status [ER+]
CPT/HCPCS: 36415; 78195-TC; 84703; 85027; 88305-TC; 88307-TC; 88331-TC; 94760; A9541; J1644